=== PATIENT | female | born 1990 ===

== ENCOUNTER 2017-01-16 22:54 | Emergency (ER) | payer SELFPAY ==
[2017-01-16 23:08] VITALS: BP 117/71; PULSE 91; RESP 18; TEMP 99; O2SAT 99
--- NOTE | 2017-01-16 23:42 | ED PDOC ---
Arrival/HPI - General Chief Complaint: Back Pain Time Seen by Provider: 01/16/17 23:01 Historian: Patient - History of Present Illness Narrative History of Present Illness (Text): 01/16/17 23:37 26yr old female presents today with back pain since a fall in 2013. pt states since that time she has had continued back pain for which she hasnt taken any medications. pt states recently the pain has increased. she denies numbness, weakness or tingling in the extremities. denies urinary symptoms. denies abdominal pain. denies fever/chills. no cp or sob. patient states pain is worse with movement. pt describes the pain as a pressure along the sides of the spine. no mediations have been taking for pain at home. pt denies bladder or bowel incontinence. no dizziness or weakness. no other complaints. Time/Duration: Other (since 2013) Symptom Onset: Gradual Symptom Course: Worsening Quality: Pressure Severity Level: Moderate Past Medical History - Provider Review Nursing Documentation Reviewed: Yes - Travel History Have you recently traveled outside [place] w/in the past 3 mons?: No - Tetanus Immunization Tetanus Immunization: Unknown - Pulmonary Hx Respiratory Disorders: Yes Hx Asthma: Yes - Psychiatric Hx Substance Use: No - Surgical History Hx Appendectomy: Yes Family/Social History - Physician Review Nursing Documentation Reviewed: Yes Family/Social History: Unknown Family HX Smoking Status: Light Smoker < 10 Cigarettes Daily Hx Alcohol Use: No Hx Substance Use: No Allergies/Home Meds Allergies/Adverse Reactions: Allergies No Known Allergies Allergy (Verified 01/16/17 23:07) Home Medications: Home Meds Medication Instructions Recorded Confirmed Albuterol HFA [Ventolin HFA 90 2 puff IH PRN PRN 01/16/17 01/16/17 mcg/actuation (8 g)] Review of Systems - Review of Systems Constitutional: absent: Fatigue, Fevers Respiratory: absent: SOB, Cough Cardiovascular: absent: Chest Pain, Palpitations Gastrointestinal: absent: Abdominal Pain, Constipation, Diarrhea, Nausea, Vomiting Genitourinary Female: absent: Dysuria, Frequency, Hematuria Musculoskeletal: Back Pain. absent: Arthralgias, Neck Pain Skin: absent: Rash, Pruritis Neurological: absent: Headache, Dizziness Psychiatric: absent: Anxiety, Depression Physical Exam Vital Signs Reviewed: Yes Vital Signs Temp Pulse Resp BP Pulse Ox 01/16/17 23:07 99 F 91 H 18 117/71 99 Temperature: Afebrile Blood Pressure: Normal Pulse: Regular Respiratory Rate: Normal Appearance: Positive for: Well-Appearing, Non-Toxic, Comfortable Pain Distress: None Mental Status: Positive for: Alert and Oriented X 3 - Systems Exam Head: Present: Atraumatic Mouth: Present: Moist Mucous Membranes Neck: Present: Normal Range of Motion, Other (+ bilateral trapezius tenderness. ). No: MIDLINE TENDERNESS, Paraspinal Tenderness Respiratory/Chest: Present: Clear to Auscultation, Good Air Exchange. No: Respiratory Distress, Accessory Muscle Use Cardiovascular: Present: Regular Rate and Rhythm, Normal S1, S2. No: Murmurs Abdomen: No: Tenderness, Distention, Rebound, Guarding Back: Present: Normal Inspection, Paraspinal Tenderness (+ bilateral paraspinal tenderness of upper and lower spine. no edema, no erythema; no ecchymosis; no warmth. ). No: CVA Tenderness, Midline Tenderness Upper Extremity: Present: Normal Inspection, Normal ROM Lower Extremity: Present: Normal Inspection. No: Normal ROM Neurological: Present: GCS=15, Speech Normal Skin: Present: Warm, Dry, Normal Color. No: Rashes Psychiatric: Present: Alert, Oriented x 3 Medical Decision Making ED Course and Treatment: 01/16/17 23:43 Patient nontoxic well-appearing in no distress with stable vital signs. Toradol IM xray tspine; wnl xray lspine; no fracture Patient reassessment: Feeling better with medications ambulating with a steady gait. Muscle strength 5 out of 5 bilaterally. discussed xrays results with patient. I advised to followup with the orthopedist within the next 2 days. Return if symptoms worsen persist or new symptoms develop pt verbalized understanding of d/c instructions and need for immediate f/u. Impression: Back pain Motrin every 6 hours as needed for pain Flexeril one tablet every 8 hours as needed for muscle spasms: May cause drowsiness Followup with the orthopedist within the next 2 days Followup with primary care physician within the next 2 days Return if symptoms worsen persist or if new symptoms develop - RAD Interpretation Radiology Orders: 01/16/17 23:35 DORSAL (THORACIC) SPINE [RAD] Stat LS SPINE WITH OBL > 18 YRS OLD [RAD] Stat - Medication Orders Current Medication Orders: Discontinued Medications Ketorolac Tromethamine (Toradol) 60 mg IM STAT STA Stop: 01/16/17 23:36 Last Admin: 01/16/17 23:53 Dose: 60 mg MAR Pain Assessment Document 01/16/17 23:53 SS (Rec: 01/16/17 23:53 SS [id number]) Pain Reassessment Is this a pain reassessment? No Sleep Is patient sleeping during reassessment? No Presence of Pain Presence of Pain Yes Location Left, Right or Bilateral Bilateral Pain Location Body Site Back Description Intensity of Pain at present 8 Pain Behavior Restlessness IM Administration Charges Document 01/16/17 23:53 SS (Rec: 01/16/17 23:53 SS [id number]) Charges for Administration # of IM Administrations 1 Disposition/Present on Arrival - Present on Arrival Any Indicators Present on Arrival: No History of DVT/PE: No History of Uncontrolled Diabetes: No Urinary Catheter: No History of Decub. Ulcer: No History Surgical Site Infection Following: None - Disposition Have Diagnosis and Disposition been Completed?: Yes Diagnosis: Back pain Disposition: HOME/ ROUTINE Disposition Time: 00:33 Patient Plan: Discharge Condition: GOOD Discharge Instructions (ExitCare): Back Pain (ED) Additional Instructions: Motrin every 6 hours as needed for pain Flexeril one tablet every 8 hours as needed for muscle spasms: May cause drowsiness Followup with the orthopedist within the next 2 days Followup with primary care physician within the next 2 days Return if symptoms worsen persist or if new symptoms develop Prescriptions: Cyclobenzaprine [Cyclobenzaprine HCl] 10 mg PO Q8 #10 tab Ibuprofen [Motrin] 600 mg PO Q6H PRN #20 tab PRN Reason: pain/fever reduction Referrals: Liz Guerra MD [Staff Provider] - Follow up with primary Cj Bay MD [Staff Provider] - Follow up with primary David West MD [Staff Provider] - Follow up with primary Forms: [employer] ([place]an), WORK NOTE
--- NOTE | 2017-01-17 08:48 | RAD ---
HISTORY: chronic back pain COMPARISON: No prior. FINDINGS: BONES: Alignment maintained. No fracture. DISC SPACES: Normal. SOFT TISSUES: Normal. OTHER FINDINGS: None. IMPRESSION: Normal radiographs of the thoracic spine.
--- NOTE | 2017-01-17 08:48 | RAD ---
PROCEDURE: Radiographs of the Lumbar Spine. HISTORY: chronic back pain COMPARISON: No prior. FINDINGS: BONES: Normal alignment. No listhesis. No fracture. DISC SPACES: Unremarkable. OTHER FINDINGS: Surgical clips checked over the right iliac crest. Moderate left and right colonic stool retention present IMPRESSION: Unremarkable radiographs of the lumbar spine.
== END 2017-01-17 00:42 | disposition home or self-care (01) ==
LOC: ED 22:54
DX: M54.9 Dorsalgia, unspecified (principal); F17.210 Nicotine dependence, cigarettes, uncomplicated
CPT/HCPCS: 72070; 72110; 96372; 99283; J1885

== ENCOUNTER 2018-02-22 00:44 | Emergency (ER) | payer SELFPAY ==
[2018-02-22 00:53] VITALS: BMI 36.6
[2018-02-22 00:56] VITALS: TEMP 98.2
[2018-02-22] MEDS ORDERED: Sodium Chloride 0.9% 1,000 ML IV STA (01:10)
[2018-02-22] MEDS ORDERED: Alum-Mag Hydrox-Simethicone Susp (30 mL) PO STA (01:10)
--- NOTE | 2018-02-22 01:20 | ED PDOC ---
Arrival/HPI - General Chief Complaint: Abdominal Pain Time Seen by Provider: 02/22/18 00:55 Historian: Patient - History of Present Illness Narrative History of Present Illness (Text): 02/22/18 01:11 27 year old female, with no significant past medical history, presents to the emergency department with abdominal pain. Patient informs she went to the emergency department 3 months prior for these symptoms, and was suspected to have an ulcer. Patient informs she was instructed to follow up with GI, which she states she has not. Patient states she was prescribed sucralfate on the previous visit. Patient denies any fevers, chills, headache, dizziness, chest pain, shortness of breath, or any other complaint. Time/Duration: Prior to Arrival Past Medical History - Provider Review Nursing Documentation Reviewed: Yes - Infectious Disease Hx of Infectious Diseases: None - Tetanus Immunization Tetanus Immunization: Unknown - Cardiac Hx Cardiac Disorders: No Hx Hypertension: No - Pulmonary Hx Respiratory Disorders: Yes Hx Asthma: Yes - Neurological HX Cerebrovascular Accident: No Hx Seizures: No - Hematological/Oncological Hx Anemia: Yes Hx Blood Transfusions: No Hx Cancer: No - Genitourinary/Gynecological Hx Sexually Transmitted Diseases: No - Psychiatric Hx Substance Use: No - Surgical History Hx Appendectomy: Yes - Anesthesia Hx Anesthesia: Yes Hx Anesthesia Reactions: No Hx Malignant Hyperthermia: No - Suicidal Assessment Feels Threatened In Home Enviroment: No Family/Social History - Physician Review Nursing Documentation Reviewed: Yes Family/Social History: No Known Family HX Smoking Status: Never Smoked Hx Alcohol Use: Yes Frequency of alcohol use: Socially Hx Substance Use: No Allergies/Home Meds Allergies/Adverse Reactions: Allergies No Known Allergies Allergy (Verified 08/27/15 17:07) Home Medications: Home Meds Medication Instructions Recorded Confirmed Sucralfate [Carafate Tab] 1 tab PO TID PRN 02/22/18 02/22/18 Review of Systems - Physician Review All systems were reviewed & negative as marked: Yes - Review of Systems Constitutional: absent: Fevers Cardiovascular: absent: Chest Pain Physical Exam - Physical Exam Narrative Physical Exam (Text): 02/22/18 01:10 Constitutional: No acute distress. Head: Normocephalic. Atraumatic. Eyes: PERRL. ENT: Moist mucous membranes. Neck: Supple. Cardiovascular: Regular rate. Chest: No tenderness. Respiratory: Clear to auscultation bilaterally. GI: Soft. Nontender. Nondistended. Back: No CVA tenderness. Musculoskeletal: No tenderness or swelling of extremities. Skin: No rash. Neurologic: Alert, no focal deficit. Vital Signs Reviewed: Yes Vital Signs Temp Pulse Resp BP Pulse Ox 02/22/18 00:53 98.2 F 84 18 144/83 99 Temperature: Afebrile Blood Pressure: Normal Pulse: Regular Respiratory Rate: Normal Appearance: Positive for: Well-Appearing, Non-Toxic, Comfortable Pain Distress: None Mental Status: Positive for: Alert and Oriented X 3 Medical Decision Making ED Course and Treatment: 02/22/18 01:21 Impression: 27 year old female presents with stomach pain. Plan: -- Labs -- Pepcid -- Zofran -- Maalox -- Urinalysis -- Reassess and disposition Prior Visits: Notes and results from previous visits were reviewed. Progress Notes: Patient slept in ED, in no distress. Discharged home, f/u GI, return to ED for worsening pain, fever, vomiting, or any other problem. - Scribe Statement The provider has reviewed the documentation as recorded by the Kem Barber Provider Scribe Attestation: All medical record entries made by the Scribe were at my direction and personally dictated by me. I have reviewed the chart and agree that the record accurately reflects my personal performance of the history, physical exam, medical decision making, and the department course for this patient. I have also personally directed, reviewed, and agree with the discharge instructions and disposition. Disposition/Present on Arrival - Present on Arrival Any Indicators Present on Arrival: No History of DVT/PE: No History of Uncontrolled Diabetes: No Urinary Catheter: No History of Decub. Ulcer: No History Surgical Site Infection Following: None - Disposition Have Diagnosis and Disposition been Completed?: Yes Diagnosis: Abdominal pain Disposition: HOME/ ROUTINE Disposition Time: 02:43 Patient Plan: Discharge Condition: STABLE Discharge Instructions (ExitCare): Acute Abdomen (Belly Pain) Prescriptions: Famotidine/Ca Carb/Mag Hydrox [Pepcid Complete Tablet Chew] 1 each PO BID #[id number] tab.chew Referrals: Leo Huynh MD [Staff Provider] - Follow up with primary Forms: [employer] (Kiswahili)
[2018-02-22 01:40] LABS: ALB/GLOB RATIO 1.2 (1.1-1.8)
[2018-02-22 01:54] LABS: BASO # 0.03 K/mm3 (0.0-2.0); BASO % 0.2 % (0.0-3.0); EOS # 0.2 (0.0-0.7); EOS % 1.6 % (1.5-5.0); GRAN # 6.62 (1.4-6.5); HEMOGLOBIN 12.5 g/dL (12.0-16.0); LYMPH % 39.5 % (22.0-35.0); MEAN CELL VOLUME 95.2 fl (80.0-105.0); MEAN CORPUSCULAR HEMOGLOBIN 31.4 pg (25.0-35.0); MEAN PLATELET VOLUME 9.1 fl (7.0-11.0); MONO # 0.9 (0.1-0.6); MONO % 6.7 % (1.0-6.0); RBC 3.98 10^6/uL (3.5-6.1); RED CELL DISTRIBUTION WIDTH 13.2 % (11.5-14.5); WHITE BLOOD COUNT 12.8 10^3/uL (4.5-11.0)
[2018-02-22 02:35] LABS: ALT/SGPT 26 U/L (7-56); AST/SGOT 17 U/L (14-36); BLOOD UREA NITROGEN 16 mg/dL (7-21); CALCIUM 8.8 mg/dL (8.4-10.5); GFR NON-AFRICAN AMERICAN > 60; LIPASE 72 U/L (23-300)
[2018-02-22 03:45] VITALS: RESP 16
[2018-02-22 06:14] VITALS: BP 127/62; PULSE 76; O2SAT 97
== END 2018-02-22 06:13 | disposition home or self-care (01) ==
LOC: ED 00:44
DX: R10.9 Unspecified abdominal pain (principal)
CPT/HCPCS: 80053; 83690; 84702; 85025; 96361; 96374; 96375; 99283; J2405; J7030